=== PATIENT | female | born 1990 | race Caucasian/White ===

== ENCOUNTER 2024-02-13 17:10 | Emergency (ER) | payer OTHER, SELFPAY ==
[2024-02-13 17:10] VITALS: BP 113/87; PULSE 88; RESP 18; TEMP 36.3; O2SAT 99
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
[2024-02-13] MEDS: KETOROLAC (*BKC) 60 MG/2 ML VIAL IM (17:31)
[2024-02-13] MEDS: SILVER SULFADIAZINE 1% CR 50 GM JAR (*BKC) 1 APPLIC TOPICAL (17:32)
== END 2024-02-13 17:53 | disposition home or self-care (01) ==
PROVIDERS: Emergency Provider Emergency Medicine; PCP Family Medicine
DX: T22.111A Burn of first degree of right forearm, initial encounter (principal); X08.8XXA Exposure to other specified smoke, fire and flames, initial encounter; Y93.G2 Activity, grilling and smoking food
CPT/HCPCS: 16000; 96372; 99283; A9270; J1885